=== PATIENT | male | born 1975 | race Caucasian/White ===

== ENCOUNTER → 2016-11-09 | Outpatient (CLI) | payer BC ==
--- NOTE | 2016-11-09 19:27 | CT ---
EXAMINATION TYPE: CT soft tissue neck w con DATE OF EXAM: 11/09/2016 7:11 PM COMPARISON: NONE HISTORY: Lump to left side jaw area. CT DLP: 693 mGycm Automated exposure control for dose reduction was used. CONTRAST: CT scan of the neck is performed following with IV Contrast, patient injected with 100 mL of Omnipaqu e 300. Axial images are obtained, coronal and sagittal reformatted images are reviewed. FINDINGS: There is normal branching pattern of the great vessels on the aortic arch. Thyroid gland is symmetric . There is normal contrast opacification of the carotid arteries and jugular veins. Epiglottis appear s normal. There is no evidence of a pharyngeal mass. Subglottic trachea appears normal. Submandibular salivary glands are symmetric in size. the sternocleidomastoid muscle muscles are symmetric.. Parotid glands are symmetric. There are small cervical lymph nodes that measure up to 7 mm. I see no cervical adenopathy. The mandibular ring is i ntact. There is a marker on the skin on the left side of the neck in the left submandibular region. I see no discrete mass in this area. The left submandibular salivary gland shows slight decreased enha ncement compared to the right. IMPRESSION: No evidence of a mass. Left submandibular salivary gland shows slight decreased density compared to the right and this could relate to focal inflammation.
== END | disposition home or self-care (01) ==
LOC: RADCTMAIN 18:51
PROVIDERS: ATTEND Family Medicine
DX: I88.9 Nonspecific lymphadenitis, unspecified (principal)
CPT/HCPCS: 70491; Q9967

== ENCOUNTER 2018-09-05 08:50 | Day surgery (SDC) | payer BC, OTHER ==
[2018-09-04 10:20] VITALS: BMI 29.5
--- NOTE | 2018-09-05 07:28 | P.GSHP ---
History of Present Illness H&P Date: 09/05/18 CHIEF COMPLAINT: Rectal bleeding HISTORY OF PRESENT ILLNESS: The patient is a 43-year-old male who presents with rectal bleeding. Lower endoscopy was offered for further evaluation and management. PAST MEDICAL HISTORY: Please see list. PAST SURGICAL HISTORY: Please see list. MEDICATIONS: Please see list. ALLERGIES: Please see list. SOCIAL HISTORY: No illicit drug use FAMILY HISTORY: No reports of Crohn disease or ulcerative colitis. REVIEW OF ORGAN SYSTEMS: CONSTITUTIONAL: No reports of fevers or chills. No reports of weight loss despite prior attempts. GI: Has diarrhea including change in bowel habits. PHYSICAL EXAM: VITAL SIGNS: Stable GENERAL: Well-developed pleasant male in no acute distress. HEENT: No scleral icterus. Extraocular movements grossly intact. Moist buccal mucosa. NECK: Supple without lymphadenopathy. CHEST: Unlabored respirations. Equal bilateral excursions. CARDIOVASCULAR: Regular rate and rhythm. Distal 2+ pulses. ABDOMEN: Soft, nontender, nondistended. MUSCULOSKELETAL: No clubbing, cyanosis, or edema. ASSESSMENT: 1. Rectal bleeding PLAN: 1. Recommend proceeding with a lower endoscopy Past Medical History Past Medical History: Hyperlipidemia, Thyroid Disorder History of Any Multi-Drug Resistant Organisms: None Reported Past Surgical History: Hernia Repair, Tonsillectomy Past Anesthesia/Blood Transfusion Reactions: Motion Sickness, Postoperative Nausea & Vomiting (PONV) Smoking Status: Light tobacco smoker - Past Family History Mother Family Medical History: No Reported History Medications and Allergies Home Medications Medication Instructions Recorded Confirmed Type Cholecalciferol (Vitamin D3) 2,000 unit PO DAILY 09/04/18 09/04/18 History [Vitamin D3] HYDROcodone/APAP 10-325MG [[place] 1 tab PO Q4-6H PRN 09/04/18 09/04/18 History 10-325] Levothyroxine Sodium [Synthroid] 175 mcg PO DAILY 09/04/18 09/04/18 History Pravastatin Sodium [Pravachol] 40 mg PO HS 09/04/18 09/04/18 History Allergies Allergy/AdvReac Type Severity Reaction Status Date / Time No Known Allergies Allergy Verified 09/04/18 09:53
[~2018-09-05 08:50] MED LIST: LACTATED RINGERS 1,000 ML IV SCH; LIDOCAINE 1% 20 ML VIAL (10MG/ML) FOR IV START INTRADERMA PRN
[2018-09-05 09:06] VITALS: TEMP 97
[2018-09-05] MEDS ORDERED: PROPOFOL 10 MG/ML 20 ML VIAL IV ONE (10:06)
--- NOTE | 2018-09-05 10:31 | P.PCN ---
Date of Procedure: 09/05/18 Description of Procedure: PREOPERATIVE DIAGNOSIS: Rectal bleeding POSTOPERATIVE DIAGNOSIS: Rectal bleeding Sigmoid colon polyps Sigmoid colitis OPERATION: Colonoscopy to the ileocecal valve and appendiceal orifice. Colonoscopy with multiple cold forceps biopsies. SURGEON: Laila Winn MD. ANESTHESIA: MAC. INDICATIONS: The patient is a 43-year-old male who presents with rectal bleeding. Benefits and risks were described and informed consent was obtained. DESCRIPTION OF PROCEDURE: The patient had undergone Suprep. He had been brought into the operating room and laid in the left lateral decubitus position. After adequate intravenous sedation, the rectum was examined with 2% lidocaine jelly. No external hemorrhoids were encountered. The rectal tone was within normal limits. No lesions were palpated in the rectal vault. An Olympus colonoscope was advanced until the ileocecal valve and appendiceal orifice were clearly viewed. The prep was excellent with visualization of the mucosal folds. The scope was removed with visualization of each mucosal fold. No scattered diverticulosis was encountered. Multiple colonic polyps were found and cold forcep biopsy or snare polypectomy. Evidence of focal colitis was found. Retroflexion of the scope demonstrated no grade 1 internal hemorrhoids with active bleeding or inflammation. The colon was desufflated. The patient had tolerated the procedure well. Withdrawal time was over 6 minutes. FINDINGS: Aronchick preparation quality scale 1 (1-5) Internal hemorrhoids, grade 1 No external hemorrhoids. No arteriovenous malformations No sigmoid diverticulosis Focal colitis sigmoid colon Removal of 2 polyps: - Cold forceps biopsy at 20 cm from the anal verge, 4 mm polyp, sigmoid colon - Cold forceps biopsy at 18 cm from the anal verge, 5 mm polyp, sigmoid colon RECOMMENDATIONS: Repeat colonoscopy 5 years or age 49. Plan - Discharge Summary Discharge Rx Participant: No New Discharge Prescriptions: No Action HYDROcodone/APAP 10-325MG [[place] 10-325] 1 tab PO Q4-6H PRN PRN Reason: PAIN Pravastatin Sodium [Pravachol] 40 mg PO HS Levothyroxine Sodium [Synthroid] 175 mcg PO DAILY Cholecalciferol (Vitamin D3) [Vitamin D3] 2,000 unit PO DAILY Discharge Medication List Cholecalciferol (Vitamin D3) [Vitamin D3] 2,000 unit PO DAILY 09/04/18 [History] HYDROcodone/APAP 10-325MG [[place] 10-325] 1 tab PO Q4-6H PRN 09/04/18 [History] Levothyroxine Sodium [Synthroid] 175 mcg PO DAILY 09/04/18 [History] Pravastatin Sodium [Pravachol] 40 mg PO HS 09/04/18 [History] Follow up Appointment(s)/Referral(s): Laila Winn MD [STAFF PHYSICIAN] - 09/24/18 Patient Instructions/Handouts: Colorectal Polyps (DC) Activity/Diet/Wound Care/Special Instructions: Repeat colonoscopy in 5 years or age 50. Discharge Disposition: HOME SELF-CARE
[2018-09-05 10:35] VITALS: PULSE 61
[2018-09-05 10:51] VITALS: BP 122/76; RESP 18
== END 2018-09-05 10:58 | disposition home or self-care (01) ==
LOC: ORWHC2ENDO 08:50
PROVIDERS: ATTEND Surgery Plastic and Reconstructive Surgery
DX: K63.5 Polyp of colon (principal); K64.0 First degree hemorrhoids; E78.5 Hyperlipidemia, unspecified; E07.9 Disorder of thyroid, unspecified; F17.200 Nicotine dependence, unspecified, uncomplicated; Z79.890 Hormone replacement therapy; Z79.899 Other long term (current) drug therapy
CPT/HCPCS: 88305; 45380; J2704

== ENCOUNTER 2020-11-19 14:17 | Emergency (ER) | payer OTHER ==
--- NOTE | 2020-11-19 15:16 | ED ---
General Adult HPI - General Stated complaint: abnormal EKG - History of Present Illness Initial comments: Orlando is a 45yo M who presents to the ER via private vehicle at the advice of his PCP. Patient went to his PCP office today for a checkup, he was found to have "really high" blood pressure so an EKG was performed and found to be "abnormal" so he was told to come to the ER. Patient denies any chest pain, palpitations, shortness of breath. He does report left elbow pain which has been intermittent for 4 years and he has been told its tennis elbow. - Related Data Home Medications Medication Instructions Recorded Confirmed HYDROcodone/APAP 10-325MG [[place] 1 tab PO BID PRN 09/04/18 11/19/20 10-325] Cyclobenzaprine [Flexeril] 10 mg PO TID PRN 11/19/20 11/19/20 Levothyroxine Sodium [Levoxyl] 200 mcg PO DAILY 11/19/20 11/19/20 Multivit-Min/FA/Lycopen/Lutein 1 tab PO DAILY 11/19/20 11/19/20 [Centrum Silver Tablet] Allergies Allergy/AdvReac Type Severity Reaction Status Date / Time No Known Allergies Allergy Verified 11/19/20 16:43 Review of Systems ROS Statement: Those systems with pertinent positive or pertinent negative responses have been documented in the HPI. ROS Other: All systems not noted in ROS Statement are negative. Past Medical History Past Medical History: Hyperlipidemia, Thyroid Disorder History of Any Multi-Drug Resistant Organisms: None Reported Past Surgical History: Hernia Repair, Tonsillectomy Past Anesthesia/Blood Transfusion Reactions: Motion Sickness, Postoperative Nausea & Vomiting (PONV) Past Psychological History: No Psychological Hx Reported Past Alcohol Use History: None Reported Additional Past Alcohol Use History / Comment(s): VAPES DAILY - STARTED SMOKING AGE 15 QUIT CIG 2009 SMOKES 1PPD Past Drug Use History: Marijuana Additional Drug Use History / Comment(s): DAILY USE MARIJUANA - Past Family History Mother Family Medical History: No Reported History General Exam - General Exam Comments Initial Comments: Physical Exam GENERAL: Patient is well-developed and well-nourished. Patient is nontoxic and well- hydrated and is in no distress. HENT: Normocephalic, Atraumatic. EYES: PERRL, EOMI PULMONARY: Unlabored respirations. No audible rales rhonchi or wheezing was noted. CARDIOVASCULAR: There is a regular rate and rhythm without any murmurs gallops or rubs. ABDOMEN: Soft and nontender with normal bowel sounds. SKIN: Skin is clear with no lesions or rashes and otherwise unremarkable. : Deferred NEUROLOGIC: Patient is alert and oriented x3. Moving all extremities spontaneously MUSCULOSKELETAL: Normal extremities with adequate strength and full range of motion. No lower extremity swelling or edema. No calf tenderness. PSYCHIATRIC: Normal psychiatric evaluation. Course Vital Signs 11/19/20 11/19/20 15:13 16:45 Temperature 98.1 F Pulse Rate 94 86 Respiratory 20 17 Rate Blood Pressure 155/96 127/89 O2 Sat by Pulse 99 98 Oximetry EKG Findings - EKG Comments: EKG Findings:: EKG was obtained due to report of abnormal outpatient EKG, EKG was obtained at 1551 rate is 76 rhythm sinus there is a normal axis, there are normal intervals, LA 170, QRS 92, QTc is 418 there are no acute ST elevations or depressions no evidence of acute ischemia or infarction. Medical Decision Making - Medical Decision Making Patient was seen and evaluated, history was obtained from patient Patient was able to primary care office today for checkup and was found to have hypertension therefore an EKG was done and was told it was abnormal and he s hould come to the ER. He had no chest pain palpitations or shortness of breath. Has no known cardiac history. Labs are unremarkable, patient's hypertension resolved while resting in the ER. At this time I don't feel the patient is having any ACS or any acute medical emergency and is stable for discharge home. - Lab Data Result diagrams: 11/19/20 15:57 11/19/20 15:57 Lab Results 11/19/20 11/19/20 11/19/20 Range/Units 15:57 15:57 15:57 WBC 11.6 H (3.8-10.6) k/uL RBC 4.66 (4.30-5.90) m/uL Hgb 14.8 (13.0-17.5) gm/dL Hct 43.2 (39.0-53.0) % MCV 92.7 (80.0-100.0) fL MCH 31.7 (25.0-35.0) pg MCHC 34.2 (31.0-37.0) g/dL RDW 12.9 (11.5-15.5) % Plt Count 249 (150-450) k/uL MPV 8.6 Neutrophils % 83 % Lymphocytes % 11 % Monocytes % 4 % Eosinophils % 0 % Basophils % 0 % Neutrophils # 9.7 H (1.3-7.7) k/uL Lymphocytes # 1.3 (1.0-4.8) k/uL Monocytes # 0.5 (0-1.0) k/uL Eosinophils # 0.0 (0-0.7) k/uL Basophils # 0.0 (0-0.2) k/uL Sodium 139 (137-145) mmol/L Potassium 4.1 (3.5-5.1) mmol/L Chloride 109 H (98-107) mmol/L Carbon Dioxide 22 (22-30) mmol/L Anion Gap 8 mmol/L BUN 13 (9-20) mg/dL Creatinine 0.96 (0.66-1.25) mg/dL Est GFR (CKD-EPI)AfAm >90 (>60 ml/min/1.73 sqM) Est GFR (CKD-EPI)NonAf >90 (>60 ml/min/1.73 sqM) Glucose 118 H (74-99) mg/dL Calcium 9.5 (8.4-10.2) mg/dL Total Bilirubin 0.5 (0.2-1.3) mg/dL AST 33 (17-59) U/L ALT 41 (4-49) U/L Alkaline Phosphatase 83 (38-126) U/L Troponin I <0.012 (0.000-0.034) ng/mL Total Protein 7.3 (6.3-8.2) g/dL Albumin 4.4 (3.5-5.0) g/dL Disposition Clinical Impression: HTN (hypertension) Disposition: HOME SELF-CARE Condition: Stable Instructions (If sedation given, give patient instructions): Chronic Hypertension (DC) Is patient prescribed a controlled substance at d/c from ED?: No Referrals: David Joshi MD [Primary Care Provider] - 1-2 days
[2020-11-19 15:17] VITALS: TEMP 98.1
[2020-11-19 16:09] LABS: Basophils % (A) 0 %; Eosinophils % (A) 0 %; HCT 43.2 % (39.0-53.0); HGB 14.8 gm/dL (13.0-17.5); Lymphocytes # (A) 1.3 k/uL (1.0-4.8); Lymphocytes % (A) 11 %; MCH 31.7 pg (25.0-35.0); MCHC 34.2 g/dL (31.0-37.0); MCV 92.7 fL (80.0-100.0); Mean Platelet Volume 8.6; Monocytes # (A) 0.5 k/uL (0-1.0); Monocytes % (A) 4 %; Neutrophils # (A) 9.7 k/uL (1.3-7.7); Neutrophils % (A) 83 %; Platelet Count 249 k/uL (150-450); RBC 4.66 m/uL (4.30-5.90); RDW 12.9 % (11.5-15.5); WBC 11.6 k/uL (3.8-10.6)
[2020-11-19 16:23] LABS: ALT 41 U/L (4-49); AST 33 U/L (17-59); African American GFR (CKD) >90 (>60 ml/min/1.73 sqM); Albumin 4.4 g/dL (3.5-5.0); Alkaline Phosphatase 83 U/L (38-126); Anion Gap 8 mmol/L; Blood Urea Nitrogen 13 mg/dL (9-20); Calcium 9.5 mg/dL (8.4-10.2); Carbon Dioxide 22 mmol/L (22-30); Chloride 109 mmol/L (98-107); Glucose 118 mg/dL (74-99); Non-African American GFR(CKD) >90 (>60 ml/min/1.73 sqM); Potassium 4.1 mmol/L (3.5-5.1); Sodium 139 mmol/L (137-145); Total Bilirubin 0.5 mg/dL (0.2-1.3); Total Protein 7.3 g/dL (6.3-8.2)
--- NOTE | 2020-11-19 16:33 | XR ---
EXAMINATION TYPE: XR chest 2V DATE OF EXAM: 11/19/2020 COMPARISON: NONE HISTORY: Chest pain. Abnormal EKG. TECHNIQUE: Frontal and lateral views of the chest are obtained. FINDINGS: There is mild chronic parenchymal changes bilaterally without suspicious focal air space o pacity, pleural effusion, or pneumothorax seen. The cardiac silhouette size is within normal limits. Overlying EKG leads. The osseous structures are intact. IMPRESSION: No acute process.
[2020-11-19 16:47] VITALS: BP 127/89; PULSE 86; RESP 17
== END 2020-11-19 17:15 | disposition home or self-care (01) ==
LOC: EC 14:17
DX: M25.522 Pain in left elbow (principal); I10 Essential (primary) hypertension; E03.9 Hypothyroidism, unspecified; Z79.890 Hormone replacement therapy; Z87.891 Personal history of nicotine dependence
CPT/HCPCS: 36415; 71046; 80053; 84484; 85025; 93005; 99284